=== PATIENT | female | born 1965 | race Caucasian/White ===

== ENCOUNTER 2018-01-08 10:48 | Outpatient (CLI) | payer OTHER ==
[~2018-01-08 10:48] MED LIST: IBUP-1051 PO
[2018-01-08 11:19] LABS: BASOPHILS # (AUTO) 0.1 X10'3 (0-0.2); BASOPHILS % (AUTO) 0.9 % (0-1); EOSINOPHILS # (AUTO) 0.2 X10'3 (0-0.9); EOSINOPHILS % (AUTO) 3.1 % (0-6); HEMATOCRIT 34.4 % (35.0-45.0); HEMOGLOBIN 11.3 g/dl (12.0-16.0); LYMPHOCYTES # (AUTO) 1.6 X10'3 (1.1-4.8); LYMPHOCYTES % (AUTO) 24.4 % (21-51); MEAN CORPUSCULAR HEMOGLOBIN 24.2 PG (27.0-31.0); MEAN CORPUSCULAR HGB CONC 32.8 % (33.0-36.5); MEAN CORPUSCULAR VOLUME 73.6 FL (78-98); MEAN PLATELET VOLUME 7.8 FL (7.4-10.4); MONOCYTES # (AUTO) 0.4 X10'3 (0-0.9); MONOCYTES % (AUTO) 6.3 % (2-12); NEUTROPHILS # (AUTO) 4.3 X10'3 (1.8-7.7); NEUTROPHILS % (AUTO) 65.3 % (42-75); PLATELET COUNT 390 X10'3 (140-440); RED BLOOD COUNT 4.68 X10'6 (4.20-5.60); RED CELL DISTRIBUTION WIDTH 16.1 % (11.5-14.5); WHITE BLOOD COUNT 6.6 X10'3 (4.5-11.0)
[2018-01-08 11:28] LABS: HEMOGLOBIN A1C 6.1 % (4.5-6.2)
[2018-01-08 11:42] LABS: ALANINE AMINOTRANSFERASE 34 U/L (12-78); ALBUMIN 3.6 G/DL (3.4-5.0); ALBUMIN/GLOBULIN RATIO 0.9 (1.1-1.5); ALKALINE PHOSPHATASE 57 IU/L (46-116); ANION GAP 9 (8-16); ASPARTATE AMINO TRANSFERASE 16 U/L (10-37); BILIRUBIN,TOTAL 0.5 MG/DL (0.1-1.0); BLOOD UREA NITROGEN 15 MG/DL (7-18); BUN/CREATININE RATIO 18.5 (6.6-38.0); CALCIUM 8.9 MG/DL (8.5-10.1); CHLORIDE 107 MMOL/L (99-107); CHOL/HDL RATIO 1.3 (0.00-4.99); CHOLESTEROL 109 MG/DL (0-200); CREATININE 0.81 MG/DL (0.40-0.90); GLUCOSE 105 MG/DL (70-104); HDL CHOLESTEROL 84 MG/DL (35-60); LDL CHOLESTEROL 27 MG/DL (50-100); POTASSIUM 4.4 MMOL/L (3.5-5.1); SODIUM 141 MMOL/L (135-145); TOTAL CARBON DIOXIDE 25.2 MMOL/L (24-32); TOTAL PROTEIN 7.4 G/DL (6.4-8.2); eGFR 75 ML/MIN
[2018-01-08 11:44] LABS: TRIGLYCERIDES < 15 MG/DL (20-135)
== END 2018-01-08 23:59 | disposition home or self-care (01) ==
LOC: LAB 10:48
PROVIDERS: ATTEND Nurse Practitioner Family
DX: E66.9 Obesity, unspecified (principal); R53.83 Other fatigue
CPT/HCPCS: 36415; 80053; 80061; 83036; 84439; 84443; 85025

== ENCOUNTER 2018-04-14 15:07 | Outpatient (CLI) | payer OTHER | END 2018-04-14 23:59 | disposition home or self-care (01) | LOC: LAB 15:07 | PROVIDERS: ATTEND Family Medicine | DX: E11.9 Type 2 diabetes mellitus without complications (principal) | CPT/HCPCS: 36415; 83036 ==

== ENCOUNTER 2019-06-28 08:09 | Outpatient (CLI) | payer OTHER ==
[2019-06-28 09:10] LABS: BASOPHILS # (AUTO) 0.1 X10'3 (0-0.2); BASOPHILS % (AUTO) 1.4 % (0-1); EOSINOPHILS # (AUTO) 0.2 X10'3 (0-0.9); EOSINOPHILS % (AUTO) 4.3 % (0-6); HEMATOCRIT 37.9 % (35.0-45.0); HEMOGLOBIN 12.1 g/dl (12.0-16.0); LYMPHOCYTES # (AUTO) 1.5 X10'3 (1.1-4.8); LYMPHOCYTES % (AUTO) 26.4 % (21-51); MEAN CORPUSCULAR HEMOGLOBIN 24.6 PG (27.0-31.0); MEAN CORPUSCULAR HGB CONC 31.9 g/dL (33.0-36.5); MEAN PLATELET VOLUME 7.4 FL (7.4-10.4); MONOCYTES # (AUTO) 0.5 X10'3 (0-0.9); NEUTROPHILS # (AUTO) 3.4 X10'3 (1.8-7.7); NEUTROPHILS % (AUTO) 59.9 % (42-75); PLATELET COUNT 386 X10'3 (140-440); RED BLOOD COUNT 4.92 X10'6 (4.20-5.60); RED CELL DISTRIBUTION WIDTH 17.5 % (11.5-14.5); WHITE BLOOD COUNT 5.7 X10'3 (4.5-11.0)
[2019-06-28 09:24] LABS: HEMOGLOBIN A1C 5.5 % (4.5-6.2)
[2019-06-28 09:28] LABS: ALANINE AMINOTRANSFERASE 43 U/L (12-78); ALBUMIN 3.6 G/DL (3.4-5.0); ALKALINE PHOSPHATASE 59 IU/L (46-116); ANION GAP 6 (8-16); ASPARTATE AMINO TRANSFERASE 17 U/L (10-37); BILIRUBIN,TOTAL 0.5 MG/DL (0.1-1.0); BLOOD UREA NITROGEN 8 MG/DL (7-18); BUN/CREATININE RATIO 10.8 (6.6-38.0); CALCIUM 8.7 MG/DL (8.5-10.1); CHLORIDE 107 MMOL/L (99-107); CHOL/HDL RATIO 1.3 (0.00-4.99); CHOLESTEROL 113 MG/DL (0-200); CREATININE 0.74 MG/DL (0.40-0.90); GLUCOSE 97 MG/DL (70-104); HDL CHOLESTEROL 86 MG/DL (35-60); LDL CHOLESTEROL 33 MG/DL (50-100); POTASSIUM 4.7 MMOL/L (3.5-5.1); SODIUM 141 MMOL/L (135-145); TOTAL CARBON DIOXIDE 28.5 MMOL/L (24-32); TOTAL PROTEIN 7.3 G/DL (6.4-8.2); eGFR 82 ML/MIN
[2019-06-28 10:46] LABS: TRIGLYCERIDES < 15 MG/DL (20-135)
[2019-06-29 08:20] LABS: FSH, SERUM 9.8 mIU/mL (.)
== END 2019-06-28 23:59 | disposition home or self-care (01) ==
LOC: LAB 08:09
PROVIDERS: ATTEND Obstetrics & Gynecology
DX: N95.1 Menopausal and female climacteric states (principal)
CPT/HCPCS: 36415; 80053; 80061; 82679; 83001; 83036; 85025

== ENCOUNTER 2019-09-28 14:51 | Outpatient (CLI) | payer OTHER ==
[2019-09-28 16:45] LABS: RHEUM FACTOR QUAL REFLEX TITER NEGATIVE (Neg)
[2019-09-30 08:13] LABS: COMPLEMENT C3, SERUM 118 mg/dL (82-167)
[2019-09-30 20:04] LABS: ANTINUCLEAR ANTIBODIES Negative (Negative)
== END 2019-09-28 23:59 | disposition home or self-care (01) ==
LOC: LAB 14:51
PROVIDERS: ATTEND Family Medicine
DX: M19.049 Primary osteoarthritis, unspecified hand (principal)
CPT/HCPCS: 36415; 84550; 85651; 86038; 86160; 86430

== ENCOUNTER 2019-11-25 11:09 | Outpatient (CLI) | payer OTHER | END 2019-11-25 23:59 | disposition home or self-care (01) | LOC: RAD 11:09 | PROVIDERS: ATTEND Family Medicine | DX: M19.041 Primary osteoarthritis, right hand (principal); M19.042 Primary osteoarthritis, left hand | CPT/HCPCS: 73130 ==

== ENCOUNTER 2020-02-05 15:44 | Emergency (ER) | payer OTHER ==
[~2020-02-05] VITALS: Ht 172.7 cm; Wt 102.3 kg
[2020-02-05 15:51] VITALS: BP 126/55
[2020-02-05] MEDS ORDERED: ibuprofen tablet 400 MG TABLET PO ONE (16:20)
[2020-02-05] MEDS ORDERED: IBUP-1984 PO (16:23)
== END 2020-02-05 16:47 | disposition home or self-care (01) ==
LOC: ER 15:45
DX: M25.572 Pain in left ankle and joints of left foot (principal); W10.8XXA Fall (on) (from) other stairs and steps, initial encounter; Y93.89 Activity, other specified; Y92.89 Other specified places as the place of occurrence of the external cause; Y99.8 Other external cause status
CPT/HCPCS: 73610; 99284

== ENCOUNTER 2020-11-27 06:42 | Day surgery (SDC) | payer BC ==
[~2020-11-27] VITALS: Ht 167.6 cm; Wt 102.7 kg
[2020-11-27 07:00] VITALS: BP 141/90
[2020-11-27] MEDS ORDERED: ESTRADIAL TD (07:08)
[2020-11-27] MEDS ORDERED: ESZO1TAB11 PO (07:09)
[2020-11-27] MEDS ORDERED: IBUP-1985 PO (07:09)
[2020-11-27] MEDS ORDERED: OMEP20TA23 PO (07:28)
[2020-11-27] MEDS ORDERED: fentaNYL/PF 50MCG/1 ML 2ML syringe ONE (07:43)
[2020-11-27] MEDS ORDERED: MIDAZolam 5mg/5ml vial ONE (07:43)
[2020-11-27 09:08] VITALS: BP 126/71
[2020-11-27 09:18] VITALS: BP 120/69
[2020-11-27 09:28] VITALS: BP 122/59
[2020-11-27 09:38] VITALS: BP 111/84
== END 2020-11-27 09:40 | disposition home or self-care (01) ==
LOC: GI LAB 06:42
PROVIDERS: ATTEND Internal Medicine Gastroenterology
DX: Z12.11 Encounter for screening for malignant neoplasm of colon (principal); K63.5 Polyp of colon; K57.30 Diverticulosis of large intestine without perforation or abscess without bleeding; Z79.899 Other long term (current) drug therapy
CPT/HCPCS: 45385; 99152; C1773; J2250; J3010; J7040; 99153; A4620

== ENCOUNTER 2022-03-24 12:05 | Emergency (ER) | payer BC, OTHER ==
[~2022-03-24] VITALS: Ht 170.2 cm; Wt 99.5 kg
[~2022-03-24 12:05] MED LIST changes: +ESTRADIAL TD; +ESZO1TAB11 PO; -IBUP-1051 PO; +IBUP-1985 PO; +OMEP20TA23 PO
[2022-03-24 12:10] VITALS: BP 158/72
[2022-03-24] MEDS ORDERED: ipratropium/albuterol 3ml nebule NEB STA (13:24)
[2022-03-24] MEDS ORDERED: GUAI400T92 PO (14:38)
[2022-03-24] MEDS ORDERED: ALBU8HFA PO (14:38)
[2022-03-24] MEDS ORDERED: GUAI118S13 PO (14:38)
== END 2022-03-24 14:56 | disposition home or self-care (01) ==
LOC: ER 12:06 → EEVIPCON 12:06 → ER 14:56
DX: J22 Unspecified acute lower respiratory infection (principal); Z88.8 Allergy status to other drugs, medicaments and biological substances; Z79.899 Other long term (current) drug therapy
CPT/HCPCS: 36415; 71046; 87502; 87503; 94640; 94760; 99284

== ENCOUNTER 2022-07-31 08:37 | Emergency (ER) | payer BC ==
[~2022-07-31] VITALS: Ht 170.2 cm; Wt 101.8 kg
[~2022-07-31 08:37] MED LIST changes: +GUAI400T92 PO
[2022-07-31 08:52] VITALS: BP 144/76
[2022-07-31] MEDS ORDERED: cephalexin 500mg capsule PO ONE (09:50)
[2022-07-31] MEDS ORDERED: sulfamethoxazole/trimethoprim DS (800/160mg) tablet PO ONE (09:50)
[2022-07-31] MEDS ORDERED: SULF1TAB49 PO (10:00)
[2022-07-31] MEDS ORDERED: CEPH-268 PO (10:00)
== END 2022-07-31 10:16 | disposition home or self-care (01) ==
LOC: ER 08:37
DX: L02.415 Cutaneous abscess of right lower limb (principal); L03.115 Cellulitis of right lower limb; Z79.899 Other long term (current) drug therapy; Z79.1 Long term (current) use of non-steroidal anti-inflammatories (NSAID); Z88.8 Allergy status to other drugs, medicaments and biological substances; Z79.2 Long term (current) use of antibiotics
CPT/HCPCS: 99283

== ENCOUNTER 2023-01-01 14:22 | Outpatient (CLI) | payer BC ==
[2023-01-01 15:12] LABS: ALBUMIN 3.8 G/DL (3.4-5.0); ANION GAP 7 (8-16); BLOOD UREA NITROGEN 22 MG/DL (7-18); BUN/CREATININE RATIO 28.2 (6.6-38.0); CALCIUM 9.9 MG/DL (8.5-10.1); CHLORIDE 106 MMOL/L (99-107); CREATININE 0.78 MG/DL (0.40-0.90); GLUCOSE 109 MG/DL (70-104); POTASSIUM 4.5 MMOL/L (3.5-5.1); SODIUM 143 MMOL/L (135-145); eGFR 77 ML/MIN
== END 2023-01-01 23:59 | disposition home or self-care (01) ==
LOC: LAB 14:22
PROVIDERS: ATTEND Student in an Organized Health Care Education/Training Program
DX: R73.03 Prediabetes (principal); E66.3 Overweight
CPT/HCPCS: 36415; 80048; 83036

== ENCOUNTER 2023-04-21 10:46 | Outpatient (CLI) | payer BC | END 2023-04-21 23:59 | disposition home or self-care (01) | LOC: RAD 10:46 | PROVIDERS: ATTEND Nurse Practitioner Family | DX: S83.242A Other tear of medial meniscus, current injury, left knee, initial encounter (principal); M23.52 Chronic instability of knee, left knee; M25.562 Pain in left knee; M17.12 Unilateral primary osteoarthritis, left knee; M22.42 Chondromalacia patellae, left knee; M25.462 Effusion, left knee; X58.XXXA Exposure to other specified factors, initial encounter; Y93.89 Activity, other specified; Y92.89 Other specified places as the place of occurrence of the external cause; Y99.8 Other external cause status | CPT/HCPCS: 73721 ==

== ENCOUNTER 2024-02-10 12:43 | Emergency (ER) | payer BC ==
[~2024-02-10] VITALS: Ht 170.2 cm; Wt 104.5 kg
[2024-02-10 13:17] LABS: BASOPHILS # (AUTO) 0.1 X10'3 (0-0.2); BASOPHILS % (AUTO) 0.8 % (0-1); EOSINOPHILS # (AUTO) 0.3 X10'3 (0-0.9); EOSINOPHILS % (AUTO) 3.9 % (0-6); HEMATOCRIT 44.2 % (35.0-45.0); HEMOGLOBIN 14.5 g/dl (12.0-16.0); LYMPHOCYTES # (AUTO) 2.7 X10'3 (1.1-4.8); LYMPHOCYTES % (AUTO) 31.7 % (21-51); MEAN CORPUSCULAR HEMOGLOBIN 28.1 PG (27.0-31.0); MEAN CORPUSCULAR HGB CONC 32.9 g/dL (33.0-36.5); MEAN CORPUSCULAR VOLUME 85.6 FL (78-98); MEAN PLATELET VOLUME 7.6 FL (7.4-10.4); MONOCYTES # (AUTO) 0.6 X10'3 (0-0.9); MONOCYTES % (AUTO) 7.3 % (2-12); NEUTROPHILS # (AUTO) 4.8 X10'3 (1.8-7.7); NEUTROPHILS % (AUTO) 56.3 % (42-75); PLATELET COUNT 306 X10'3 (140-440); RED BLOOD COUNT 5.16 X10'6 (4.20-5.60); WHITE BLOOD COUNT 8.4 X10'3 (4.5-11.0)
[2024-02-10 14:04] LABS: ALBUMIN 3.8 G/DL (3.4-5.0); ANION GAP 5 (8-16); BLOOD UREA NITROGEN 18 MG/DL (7-18); BUN/CREATININE RATIO 18.2 (10.0-20.0); CALCIUM 9.8 MG/DL (8.5-10.1); CHLORIDE 104 MMOL/L (99-107); CREATININE 0.99 MG/DL (0.40-0.90); GLUCOSE 104 MG/DL (70-104); POTASSIUM 3.8 MMOL/L (3.5-5.1); SODIUM 136 MMOL/L (135-145); eCRCL 62 ML/MIN; eGFR 58 ML/MIN
[2024-02-10 17:28] VITALS: BP 141/89; PULSE 72; RESP 16; O2SAT 97
== END 2024-02-10 17:34 | disposition home or self-care (01) ==
LOC: ER 12:44
DX: Z88.8 Allergy status to other drugs, medicaments and biological substances (principal); Z79.899 Other long term (current) drug therapy; Z98.890 Other specified postprocedural states; Z98.51 Tubal ligation status
CPT/HCPCS: 36415; 71045; 80048; 84484; 85025; 93005; 99285

== ENCOUNTER 2024-04-05 06:59 | Emergency (ER) | payer BC ==
[~2024-04-05] VITALS: Ht 170.2 cm; Wt 102.1 kg
[2024-04-05 07:03] VITALS: BP 127/56; PULSE 79; RESP 18; TEMP 97.8; O2SAT 98
[2024-04-05] MEDS ORDERED: AZIT-164 PO (07:13)
[2024-04-05] MEDS: pseudoephedrine 30mg tablet PO ONE (07:26)
[2024-04-05] MEDS: azithromycin 250mg tablet PO ONE (07:26)
[2024-04-05] MEDS: dexamethasone sod phosphate 10mg/ml inj PO STA (07:27)
== END 2024-04-05 07:44 | disposition home or self-care (01) ==
LOC: ER 07:01
DX: J02.0 Streptococcal pharyngitis (principal); Z88.8 Allergy status to other drugs, medicaments and biological substances; Z90.49 Acquired absence of other specified parts of digestive tract; Z98.51 Tubal ligation status
CPT/HCPCS: 99284; J1100

== ENCOUNTER 2024-06-21 07:55 | Outpatient (CLI) | payer BC ==
[2024-06-21 08:39] LABS: BASOPHILS # (AUTO) 0.1 X10'3 (0-0.2); BASOPHILS % (AUTO) 1.1 % (0-1); EOSINOPHILS # (AUTO) 0.2 X10'3 (0-0.9); EOSINOPHILS % (AUTO) 3.8 % (0-6); HEMATOCRIT 43.1 % (35.0-45.0); HEMOGLOBIN 14.1 g/dl (12.0-16.0); LYMPHOCYTES # (AUTO) 1.7 X10'3 (1.1-4.8); LYMPHOCYTES % (AUTO) 30.2 % (21-51); MEAN CORPUSCULAR HEMOGLOBIN 28.2 PG (27.0-31.0); MEAN CORPUSCULAR HGB CONC 32.8 g/dL (33.0-36.5); MEAN PLATELET VOLUME 7.6 FL (7.4-10.4); MONOCYTES # (AUTO) 0.5 X10'3 (0-0.9); MONOCYTES % (AUTO) 7.8 % (2-12); NEUTROPHILS # (AUTO) 3.3 X10'3 (1.8-7.7); NEUTROPHILS % (AUTO) 57.1 % (42-75); PLATELET COUNT 293 X10'3 (140-440); RED BLOOD COUNT 5.01 X10'6 (4.20-5.60); RED CELL DISTRIBUTION WIDTH 14.6 % (11.5-14.5); WHITE BLOOD COUNT 5.8 X10'3 (4.5-11.0)
[2024-06-21 09:45] LABS: ALANINE AMINOTRANSFERASE 81 U/L (12-78); ALBUMIN 3.5 G/DL (3.4-5.0); ALBUMIN/GLOBULIN RATIO 0.9 (1.1-1.5); ALKALINE PHOSPHATASE 88 IU/L (46-116); ANION GAP 2 (8-16); ASPARTATE AMINO TRANSFERASE 39 U/L (10-37); BILIRUBIN,TOTAL 0.5 MG/DL (0.1-1.0); CALCIUM 9.2 MG/DL (8.5-10.1); CHLORIDE 107 MMOL/L (99-107); CREATININE 0.71 MG/DL (0.40-0.90); GLUCOSE 108 MG/DL (70-104); POTASSIUM 4.1 MMOL/L (3.5-5.1); SODIUM 141 MMOL/L (135-145); TOTAL CARBON DIOXIDE 31.8 MMOL/L (24-32); TOTAL PROTEIN 7.2 G/DL (6.4-8.2); eGFR 85 ML/MIN
[2024-06-21 09:48] LABS: CHOL/HDL RATIO 1.7 (0.00-4.99); CHOLESTEROL 126 MG/DL (0-200); HDL CHOLESTEROL 76 MG/DL (35-60); LDL CHOLESTEROL 46 MG/DL (50-100); TRIGLYCERIDES 28 MG/DL (20-135)
[2024-06-21 09:51] LABS: BLOOD UREA NITROGEN 10 MG/DL (7-18); BUN/CREATININE RATIO 14.1 (10.0-20.0)
[2024-06-21 15:46] LABS: HEMOGLOBIN A1C 5.7 % (4.5-6.2)
== END 2024-06-21 23:59 | disposition home or self-care (01) ==
LOC: LAB 07:55
PROVIDERS: ATTEND Student in an Organized Health Care Education/Training Program
DX: E78.00 Pure hypercholesterolemia, unspecified (principal); R79.9 Abnormal finding of blood chemistry, unspecified; I10 Essential (primary) hypertension
CPT/HCPCS: 36415; 80053; 80061; 83036; 85025

== ENCOUNTER 2024-12-19 09:50 | Outpatient (CLI) | payer BC ==
[~2024-12-19 09:50] MED LIST changes: +ALBU18HF2 INH
[2024-12-19] MEDS ORDERED: GADOTERATE MEGLUMINE 7.5 MMOL/15 ML VIAL IV ONE ×2 (13:13→16:16)
== END 2024-12-19 23:59 | disposition home or self-care (01) ==
LOC: MRI 09:50
PROVIDERS: ATTEND Student in an Organized Health Care Education/Training Program
DX: S93.431A Sprain of tibiofibular ligament of right ankle, initial encounter (principal); S93.491A Sprain of other ligament of right ankle, initial encounter; M77.31 Calcaneal spur, right foot; M25.471 Effusion, right ankle; M25.571 Pain in right ankle and joints of right foot; X58.XXXA Exposure to other specified factors, initial encounter; Y93.89 Activity, other specified; Y92.89 Other specified places as the place of occurrence of the external cause; Y99.8 Other external cause status
CPT/HCPCS: 73723; A9575

== ENCOUNTER → 2025-03-02 | Outpatient (CLI) | payer BC ==
--- NOTE | 2025-03-02 17:32 | RADIOLOGY REPORT ---
Procedure: CT right ankle Reason for study/Clinical History: EFFUSION,RIGHT ANKLE Comparison Study: MRI right ankle from 12/19/2024 CTA LOWER EXTREMITY RUNOFF WITH CONTRAST DATED 03/02/2025 11:34 AM Radiation Dose Information: CT Dose: CTDI volume is 0.14+ 14.36 mGy. Dose-length product is 348.22 mGy*cm TECHNIQUE: Multiple contiguous axial CT images were obtained of the right ankle without intravenous c ontrast. Coronal and sagittal reformatted images obtained from the source axial data. All CT scans at this medical facility are performed using dose modulation techniques as appropriate t o a performed exam including the following: Automated exposure control was utilized; adjustment of th e MA and/or KV according to patient size; and use of iterative reconstruction technique. FINDINGS: Normal mineralization and alignment. Multiple subchondral cysts in the lateral talar dome again noted . Joint spaces are preserved. There is no acute fracture. There is mild degenerative change of the ti biotalar joint with mild joint space narrowing and osteophyte formation. There degenerative changes of the dorsum of the midfoot with osteophyte formation and subchondral cyst. Well corticated osseous densities project adjacent to the lateral talus. There are dorsal and plantar calcaneal enthesophyte s. The Muscle bundles about the right ankle are intact. The tendons and ligaments are not optimally e valuated by CT. Please refer to prior MRI for discussion of ligamentous partial tears. No soft tissue gas or fluid collection. IMPRESSION: 1. No acute osseous abnormality or traumatic malalignment. 2. Well corticated osseous densities project adjacent to the lateral talus which may be sequelae of r emote trauma. 3. Prominent subchondral cysts again seen in the lateral talar dome. 4. Known ligamentous partial tears not optimally evaluated by CT and are described on prior MRI right ankle from 12/19/2024, please see dictated report. 5. Mild degenerative changes of the tibiotalar joint and dorsum of the midfoot.
== END | disposition home or self-care (01) ==
LOC: RAD 11:27
PROVIDERS: ATTEND Podiatrist Foot & Ankle Surgery
DX: M25.471 Effusion, right ankle (principal); M25.871 Other specified joint disorders, right ankle and foot
CPT/HCPCS: 73700

== ENCOUNTER 2025-04-26 05:47 | Day surgery (SDC) | payer BC ==
[2025-04-19 09:30] LABS: BASOPHILS # (AUTO) 0.1 X10'3 (0-0.2); BASOPHILS % (AUTO) 1.2 % (0-1); EOSINOPHILS # (AUTO) 0.2 X10'3 (0-0.9); EOSINOPHILS % (AUTO) 3.4 % (0-6); LYMPHOCYTES # (AUTO) 1.9 X10'3 (1.1-4.8); MEAN CORPUSCULAR HEMOGLOBIN 28.4 PG (27.0-31.0); MEAN CORPUSCULAR HGB CONC 33.3 g/dL (33.0-36.5); MEAN CORPUSCULAR VOLUME 85.3 FL (78-98); MEAN PLATELET VOLUME 7.5 FL (7.4-10.4); MONOCYTES # (AUTO) 0.5 X10'3 (0-0.9); MONOCYTES % (AUTO) 7.9 % (2-12); NEUTROPHILS # (AUTO) 3.7 X10'3 (1.8-7.7); NEUTROPHILS % (AUTO) 57.5 % (42-75); PRE OP HEMATOCRIT 42.8 % (35.0-45.0); PRE OP HEMOGLOBIN 14.3 g/dL (12.0-16.0); PRE OP PLATELET COUNT 308 X10'3 (140-440); PRE OP WHITE BLOOD COUNT 6.4 10'3 (4.8-10.8); RED BLOOD COUNT 5.01 X10'6 (4.20-5.60); RED CELL DISTRIBUTION WIDTH 14.3 % (11.5-14.5)
[2025-04-19 09:46] LABS: ALBUMIN 3.9 G/DL (3.4-5.0); ALBUMIN/GLOBULIN RATIO 1.2 (1.1-1.5); ALKALINE PHOSPHATASE 102 IU/L (46-116); BLOOD UREA NITROGEN 13 MG/DL (7-18); BUN/CREATININE RATIO 14.4 (10.0-20.0); CALCIUM 9.1 MG/DL (8.5-10.1); CHLORIDE 106 MMOL/L (99-107); PRE OP ANION GAP 6 (8-16); PRE OP AST 45 U/L (10-37); PRE OP BILIRUB, TOTAL 0.4 MG/DL (0.0-1.0); PRE OP GLUCOSE 112 MG/DL (70-104); PRE OP POTASSIUM 4.3 MMOL/L (3.4-5.1); PRE OP SODIUM 143 MMOL/L (135-145); TOTAL CARBON DIOXIDE 31.5 MMOL/L (24-32); TOTAL PROTEIN 7.2 G/DL (6.4-8.2); eGFR 65 ML/MIN
[2025-04-19 10:16] LABS: PRE OP ALT 94 U/L (30-65)
[2025-04-19 12:04] LABS: BILIRUBIN,URINE NEGATIVE (Neg); CLARITY,URINE CLEAR (Clear); COLOR,URINE STRAW (Yellow); GLUCOSE, URINE NEGATIVE (Neg); KETONES,URINE NEGATIVE (Neg); LEUKOCYTE ESTERASE ,URINE NEGATIVE (Neg); NITRITES, URINE NEGATIVE (Neg); OCCULT BLOOD,URINE MODERATE (Neg); PH,URINE 6.5 (4.8-8.0); PROTEIN,URINE NEGATIVE (Neg); UROBILINOGEN,URINE 0.2 E.U/dL (0.2-1.0)
[2025-04-19 12:07] LABS: UA COLLECTION TYPE NON-SPECIFIED
[2025-04-19 12:17] LABS: BACTERIA,URINE FEW /HPF (Neg); SQUAMOUS EPITHELIAL CELL,UR FEW /LPF (FEW); WBC,URINE 0-4 /HPF (0-4)
[~2025-04-26] VITALS: Ht 170.2 cm; Wt 113.4 kg
[2025-04-26] VITALS (12 sets, daily range): BP systolic 118–131; BP diastolic 62–84; PULSE 73–102; RESP 13–17; TEMP 98.8; O2SAT 92–97
[~2025-04-26 05:47] MED LIST changes: -ALBU18HF2 INH; -ESTRADIAL TD; -GUAI400T92 PO; -IBUP-1985 PO; +VENL75CA61 PO
[2025-04-26] MEDS: ringers solution, lacted 1,000 ML IV SCH (06:38)
[2025-04-26] MEDS: ceFOXitin sod/dextrose 2g/50ml 50 ML IV ONE (06:38)
[2025-04-26] MEDS: famotidine 20mg tablet PO ONE (06:38)
[2025-04-26] MEDS ORDERED: fentaNYL/PF 50MCG/1 ML 2ML syringe ONE ×2 (07:30→07:44)
[2025-04-26] MEDS ORDERED: midazolam 1 mg/ML 2ml injection ONE (07:30)
[2025-04-26] MEDS ORDERED: BUPIVAcaine 2.5mg/ml inj 50ml vial (contains preservative) ONE (07:36)
[2025-04-26] MEDS ORDERED: dexamethasone sod phosphate 4mg/ml inj. ONE (07:42)
[2025-04-26] MEDS ORDERED: propofol inj 20 ML IV ONE ×2 (07:42)
[2025-04-26] MEDS ORDERED: LIDOcaine 2% (20mg/ml) 5ml vial ONE (07:42)
[2025-04-26] MEDS ORDERED: ondansetron/PF 4mg/2ml inj ONE (07:43)
[2025-04-26] MEDS ORDERED: meperidine/PF 25mg/ml syringe IV PRN ×3 (08:05)
[2025-04-26] MEDS ORDERED: ondansetron/PF 4mg/2ml inj IV PRN (08:05)
[2025-04-26] MEDS ORDERED: morphine 2 MG/ML inj. syringe IV PRN (08:05)
[2025-04-26] MEDS: BUPIVAcaine/PF 2.5 mg/ml (0.25%) 30ml vial IJ ONE (08:05)
[2025-04-26] MEDS ORDERED: labetalol 20mg/4ml (5mg/ml) syringe IV PRN (08:05)
[2025-04-26] MEDS ORDERED: ringers solution, lacted 1,000 ML IV SCH (08:05)
[2025-04-26] MEDS ORDERED: proCHLORperazine 10 MG/2 ml inj IV PRN (08:05)
[2025-04-26] MEDS ORDERED: enalaprilat 1.25mg/ml 2ml vial IV PRN (08:05)
[2025-04-26] MEDS ORDERED: morphine 4 MG/ML inj SYRINge IV PRN (08:05)
[2025-04-26] MEDS ORDERED: acetaminophen 1,000mg/100ml IV 100 ML IV ONE (08:22)
--- NOTE | 2025-04-26 08:57 | OPERATIVE REPORT ---
DATE OF SURGERY: 04/26/2025 DICTATING PHYSICIAN: Bib Gann MD PREOPERATIVE DIAGNOSIS: Postmenopausal bleeding with endometrial polyp. POSTOPERATIVE DIAGNOSIS: Postmenopausal bleeding with endometrial polyp. PROCEDURE: Hysteroscopic polypectomy and dilation and curettage. SURGEON: Bib Gann MD TARE WORKER: None. ANESTHESIA: Dr. Ham, general anesthetic. COMPLICATIONS: None. ESTIMATED BLOOD LOSS: Minimal. MEDICATION: IV antibiotic preoperatively. SPECIMENS: * Large endometrial polyp. * Endometrial curettage after polypectomy. DESCRIPTION OF PROCEDURE: General anesthesia was found to be adequate and the patient was placed in low lithotomy. The patient was prepped and draped in the normal sterile fashion. Bladder was drained of urine. Posterior speculum was placed in the vagina, tenaculum, and placed on the anterior lip of the cervix. The cervix was progressively and easily dilated to 7 mm and then a hysteroscope was introduced directly under direct visualization of the uterine cavity and a large endometrial polyp arising from the right lower uterine segment was identified. The rest of the endometrium appeared normal. Pictures were obtained in the patient's permanent medical record. The hysteroscope was removed. Polyp forceps were introduced and the polyp was removed in its entirety and sent to Pathology. A gentle sharp curettage after the polypectomy was performed and sent separately to pathology. The tenaculum was removed from the anterior lip of the cervix. Excellent hemostasis was observed. General anesthesia was reversed. The patient was taken out of lithotomy. She was transferred to the recovery room in stable condition. Bib Gann MD TID: [id number] RECEIPT: [id number] /TAR
== END 2025-04-26 10:05 | disposition home or self-care (01) ==
LOC: PAS 05:47
PROVIDERS: ATTEND Specialist
DX: N95.0 Postmenopausal bleeding (principal); N84.0 Polyp of corpus uteri; D25.1 Intramural leiomyoma of uterus; Z79.899 Other long term (current) drug therapy; K21.9 Gastro-esophageal reflux disease without esophagitis; F32.A Depression, unspecified; Z88.8 Allergy status to other drugs, medicaments and biological substances; Z98.890 Other specified postprocedural states
CPT/HCPCS: 36415; 58558; 80053; 81001; 82948; 85025; J0131; J0694; J1100; J2003; J2250; J2405; J2704; J3010; J3490; J7120; Z7506; Z7508; Z7512; A4355; A4618; A6258; A7000

== ENCOUNTER 2025-06-15 14:47 | Day surgery (SDC) | payer BC ==
[2025-06-06 13:26] LABS: MEAN PLATELET VOLUME 7.6 FL (7.4-10.4); PRE OP HEMATOCRIT 42.9 % (35.0-45.0); PRE OP HEMOGLOBIN 14.0 g/dL (12.0-16.0); PRE OP PLATELET COUNT 298 X10'3 (140-440); PRE OP WHITE BLOOD COUNT 8.0 10'3 (4.8-10.8); RED CELL DISTRIBUTION WIDTH 14.3 % (11.5-14.5)
[2025-06-06 13:28] LABS: LEUKOCYTE ESTERASE ,URINE NEGATIVE (Neg); NITRITES, URINE NEGATIVE (Neg); OCCULT BLOOD,URINE LARGE (Neg)
[2025-06-06 13:37] LABS: MUCUS STRANDS NONE SEEN /LPF (Neg); SQUAMOUS EPITHELIAL CELL,UR NONE SEEN /LPF (FEW); UA COLLECTION TYPE NON-SPECIFIED
[2025-06-06 13:47] LABS: CREATININE 0.83 MG/DL (0.40-0.90); PRE OP ANION GAP 5 (8-16); PRE OP AST 49 U/L (10-37); PRE OP BILIRUB, TOTAL 0.7 MG/DL (0.0-1.0); PRE OP GLUCOSE 107 MG/DL (70-104); PRE OP POTASSIUM 3.8 MMOL/L (3.4-5.1); PRE OP SODIUM 142 MMOL/L (135-145); TOTAL CARBON DIOXIDE 31.6 MMOL/L (24-32); eGFR 71 ML/MIN
[2025-06-06 14:15] LABS: PRE OP ALT 90 U/L (30-65)
[2025-06-15] VITALS (10 sets, daily range): BP systolic 122–153; BP diastolic 61–70; PULSE 70–101; RESP 8–17; TEMP 99.7; O2SAT 91–97
[~2025-06-15] VITALS: Ht 170.2 cm; Wt 114.5 kg
[2025-06-15] MEDS: ceFAZolin 2gm/dext,iso 50mL 50 ML IV ONE (05:30)
[2025-06-15] MEDS: ringers solution, lacted 1,000 ML IV SCH (15:05)
[2025-06-15] MEDS: aprepitant 40mg capsule PO ONE (15:55)
[2025-06-15] MEDS ORDERED: bacitracin 15gm ointment TP ONE (17:54)
[2025-06-15] MEDS ORDERED: midazolam 1 mg/ML 2ml injection ONE (17:56)
[2025-06-15] MEDS ORDERED: HYDROmorphone/PF 0.2 MG/ML SYRINGE IV PRN ×2 (18:00)
[2025-06-15] MEDS ORDERED: labetalol 20mg/4ml (5mg/ml) syringe IV PRN (18:00)
[2025-06-15] MEDS ORDERED: ondansetron/PF 4mg/2ml inj IV PRN (18:00)
[2025-06-15] MEDS ORDERED: morphine 4 MG/ML inj SYRINge IV PRN (18:00)
[2025-06-15] MEDS ORDERED: hydrALAZINE 20mg/ml inj. IV PRN (18:00)
[2025-06-15] MEDS ORDERED: ringers solution, lacted 1,000 ML IV SCH (18:00)
[2025-06-15] MEDS ORDERED: LIDOcaine 2% (20mg/ml) 5ml vial ONE (18:32)
[2025-06-15] MEDS ORDERED: ROPIVAcaine 0.5% (5mg/ml) 30ml vial ONE (18:32)
[2025-06-15] MEDS ORDERED: fentaNYL /PF 50mcg/ml 5ml ampule ONE (18:32)
[2025-06-15] MEDS ORDERED: dexamethasone sod phosphate 4mg/ml inj. ONE (18:32)
[2025-06-15] MEDS ORDERED: propofol inj 20 ML IV ONE (18:33)
[2025-06-15] MEDS ORDERED: ondansetron/PF 4mg/2ml inj ONE (18:33)
[2025-06-15] MEDS ORDERED: 0.9 % SODIUM CHLORIDE 10 ML VIAL ONE (18:33)
[2025-06-15] MEDS: acetaminophen 1,000mg/100ml IV 100 ML IV PRN (20:37)
== END 2025-06-15 21:45 | disposition home or self-care (01) ==
LOC: PRE-OP 14:47
PROVIDERS: ATTEND Podiatrist Foot & Ankle Surgery
DX: S93.401A Sprain of unspecified ligament of right ankle, initial encounter (principal); M19.071 Primary osteoarthritis, right ankle and foot; M25.471 Effusion, right ankle; M25.371 Other instability, right ankle; M25.571 Pain in right ankle and joints of right foot; M93.971 Osteochondropathy, unspecified, right ankle and foot; G89.18 Other acute postprocedural pain; E66.9 Obesity, unspecified; K21.9 Gastro-esophageal reflux disease without esophagitis; F32.A Depression, unspecified; Z79.899 Other long term (current) drug therapy; Z90.49 Acquired absence of other specified parts of digestive tract; Z98.51 Tubal ligation status; Z98.890 Other specified postprocedural states; Z68.39 Body mass index [BMI] 39.0-39.9, adult; Z88.8 Allergy status to other drugs, medicaments and biological substances; X58.XXXA Exposure to other specified factors, initial encounter; Y93.89 Activity, other specified; Y92.89 Other specified places as the place of occurrence of the external cause; Y99.8 Other external cause status
CPT/HCPCS: 20902; 27698; 28100; 29898; 36415; 64445; 64447; 80053; 81001; 82948; 85025; A6222; C1713; J0131; J0690; J1100; J2003; J2250; J2405; J2704; J2795; J3010; J7120; J8501; Z7506; Z7508; Z7512; A4618; A4620; A6449; A7000